=== PATIENT | female | born 1960 | race African-American/Black ===

== ENCOUNTER 2020-03-15 17:21 | Inpatient (IN) ==
[2020-03-15 18:24] LABS: Apearance,Urine CLEAR (Clear); Bacteria,Urine Occasional /HPF (Few); Bilirubin,Urine Negative (Negative); Blood, Urine Negative (Negative); Glucose,Urine (UA) Negative (Negative); Ketones,Urine 5 mg/dL (Negative); Mucus,Urine Occasional /LPF (Occasional); Nitrite,Urine Negative (Negative); Protein,Urine Negative; RBC,Urine 4 /HPF (0-4); Squamous Epithelial Cell,Urine Occasional /HPF (0-10); Urine Color Yellow (Yellow); Urine Specific Gravity 1.017 (1.001-1.035); Urine Urobilinogen < 2.0 EU/DL (0.2-1.0); WBC,Urine 14 /HPF (0-6)
[2020-03-15 18:30] LABS: Basophils # 0.1 10*3/uL (0.0-0.2); Basophils % 0.3 % (0.0-0.8); Eosinophils % 0.2 % (0.00-10.9); Hematocrit 41.8 VOL% (35.7-47.0); Hemoglobin 13.4 GM/DL (12.0-16.0); Immature Granulocytes % 0.6 %; Immature Granulocytes Absolute 0.14 #; Lymphocytes # 3.1 10*3/uL (1.4-4.0); Lymphocytes % 13.1 % (21.3-54.2); Mean Corpuscular HGB Conc 32.1 GM/DL (32-36); Mean Corpuscular Volume 90.5 FL (87-102); Mean Platelet Volume 9.6 FL (9.6-12.0); Monocytes % 5.1 % (1.7-12.7); Neutrophils % 80.7 % (38.7-73.9); Platelet Count 363 T/CUMM (130-400); Red Blood Count 4.62 MC/CUMM (3.8-5.5); White Blood Count 23.8 T/CUMM (4-12)
[2020-03-15 18:45] LABS: Albumin 3.7 G/DL (3.4-5.0); Bilirubin,Total 1.1 MG/DL (0.2-1.0); Calcium 9.2 MG/DL (8.5-10.1); Osmolality,Calculated 273.7 MOS/KG (273-304); Total Protein 7.9 G/DL (6.4-8.3)
[2020-03-15 18:50] LABS: Lymphocytes 10 % (20-55); Macrocytosis 1+; Platelet Estimate Adequate; Polychromasia 1+; Segmented Neutrophils 87 % (50-85); Total Cells Counted 100
[2020-03-15] MEDS ORDERED: CLINDAMYCIN INJ 600 MG in PREMIX 1 EACH IV STA (20:53)
[2020-03-15] MEDS ORDERED: metroNIDAZOLE INJ 500 MG in PREMIX 1 EACH IV STA (20:54)
[2020-03-15] MEDS ORDERED: cefTRIAXone 1,000 MG in SODIUM CHLORIDE 0.9% 100 ML IV SCH (21:00)
[2020-03-15] MEDS ORDERED: CLINDAMYCIN INJ 50 ML IV ONE (21:05)
[2020-03-15] MEDS ORDERED: cefTRIAXone 1,000 MG in SODIUM CHLORIDE 0.9% 100 ML IV STA (21:10)
[2020-03-15] MEDS: SODIUM CHLORIDE 0.9% 1,000 ML IV SCH (21:11)
[2020-03-15] MEDS: ACETAMINOPHEN 325 MG TABLET PO PRN (21:22)
[2020-03-16] MEDS ORDERED: GLUCAGON 1 MG VIAL IM PRN (01:17)
[2020-03-16] MEDS ORDERED: DEXTROSE 50% 25 GM/50 ML VIAL IV PRN (01:17)
[2020-03-16 03:00] LABS: Basophils % 0.2 % (0.0-0.8); Eosinophils # 0.1 10*3/uL (0.0-0.87); Eosinophils % 0.4 % (0.00-10.9); Hematocrit 37.1 VOL% (35.7-47.0); Hemoglobin 11.7 GM/DL (12.0-16.0); Immature Granulocytes % 0.5 %; Immature Granulocytes Absolute 0.09 #; Lymphocytes # 2.8 10*3/uL (1.4-4.0); Lymphocytes % 14.8 % (21.3-54.2); Mean Corpuscular HGB Conc 31.5 GM/DL (32-36); Mean Corpuscular Volume 91.2 FL (87-102); Mean Platelet Volume 9.5 FL (9.6-12.0); Monocytes % 5.2 % (1.7-12.7); Neutrophils % 78.9 % (38.7-73.9); Platelet Count 277 T/CUMM (130-400); Red Blood Count 4.07 MC/CUMM (3.8-5.5); Red Cell Distribution Width 14.1 % (9.3-17.3); White Blood Count 19.2 T/CUMM (4-12)
[2020-03-16 03:22] LABS: Bilirubin,Total 0.9 MG/DL (0.2-1.0); Calcium 8.4 MG/DL (8.5-10.1); Osmolality,Calculated 275.5 MOS/KG (273-304)
[2020-03-16] MEDS: PIPERACILLIN/TAZOBACTAM 3,375 MG in SODIUM CHLORIDE 0.9% 100 ML IV SCH ×3 (06:05→21:47)
[2020-03-16] MEDS: SODIUM CHLORIDE 0.9% 1,000 ML IV SCH (06:05)
[2020-03-16] MEDS: ACETAMINOPHEN 325 MG TABLET PO PRN (08:40)
[2020-03-16] MEDS: ENOXAPARIN 40 MG/0.4 ML SYRINGE SUBCUT SCH (08:40)
[2020-03-16] MEDS: DEXTROSE 5% NACL 0.45% 1,000 ML IV SCH ×3 (08:40→18:32)
[2020-03-16] MEDS: metroNIDAZOLE INJ 500 MG in PREMIX 1 EACH IV SCH ×2 (10:32→18:31)
[2020-03-16] MEDS ORDERED: DEXAMETHASONE 4 MG TABLET PO SCH (14:00)
[2020-03-16] MEDS: PANTOPRAZOLE 40 MG VIAL IV SCH (14:10)
[2020-03-16] MEDS: ASCORBIC ACID 500 MG TABLET PO SCH (21:45)
[2020-03-17] MEDS: metroNIDAZOLE INJ 500 MG in PREMIX 1 EACH IV SCH ×3 (03:12→18:07)
[2020-03-17 05:44] LABS: Basophils % 0.2 % (0.0-0.8); Eosinophils % 0.1 % (0.00-10.9); Hemoglobin 11.9 GM/DL (12.0-16.0); Immature Granulocytes % 0.7 %; Immature Granulocytes Absolute 0.12 #; Lymphocytes # 1.6 10*3/uL (1.4-4.0); Lymphocytes % 9.1 % (21.3-54.2); Mean Corpuscular HGB Conc 32.2 GM/DL (32-36); Mean Platelet Volume 9.8 FL (9.6-12.0); Monocytes % 2.3 % (1.7-12.7); Neutrophils % 87.6 % (38.7-73.9); Platelet Count 294 T/CUMM (130-400); Red Blood Count 4.11 MC/CUMM (3.8-5.5); Red Cell Distribution Width 13.5 % (9.3-17.3); White Blood Count 17.5 T/CUMM (4-12)
[2020-03-17] MEDS: PIPERACILLIN/TAZOBACTAM 3,375 MG in SODIUM CHLORIDE 0.9% 100 ML IV SCH ×3 (05:52→21:23)
[2020-03-17 06:25] LABS: Calcium 8.9 MG/DL (8.5-10.1); Osmolality,Calculated 272.8 MOS/KG (273-304)
[2020-03-17] MEDS: ENOXAPARIN 40 MG/0.4 ML SYRINGE SUBCUT SCH (08:57)
[2020-03-17] MEDS: PANTOPRAZOLE 40 MG VIAL IV SCH (08:58)
[2020-03-17] MEDS: ESCITALOPRAM 10 MG TABLET PO SCH (08:58)
[2020-03-17] MEDS: DEXAMETHASONE 4 MG TABLET PO SCH (08:58)
[2020-03-17] MEDS: ACETAMINOPHEN 325 MG TABLET PO PRN (08:59)
[2020-03-17] MEDS: ASCORBIC ACID 500 MG TABLET PO SCH ×2 (08:59→21:23)
[2020-03-17] MEDS: DEXTROSE 5% NACL 0.45% 1,000 ML IV SCH ×3 (09:00→14:59)
[2020-03-17] MEDS ORDERED: ZINC SULFATE 220 MG CAPSULE PO SCH (09:00)
[2020-03-17] MEDS ORDERED: ONDANSETRON 4 MG/2 ML VIAL IM PRN (11:08)
[2020-03-17] MEDS ORDERED: ONDANSETRON 4 MG/2 ML VIAL IV PRN (11:27)
[2020-03-18] MEDS: metroNIDAZOLE INJ 500 MG in PREMIX 1 EACH IV SCH ×3 (01:23→18:02)
[2020-03-18] MEDS: PIPERACILLIN/TAZOBACTAM 3,375 MG in SODIUM CHLORIDE 0.9% 100 ML IV SCH (05:56)
[2020-03-18] MEDS ORDERED: HYDROmorphone 2 MG/1 ML VIAL IV ONE (07:35)
[2020-03-18] MEDS: PANTOPRAZOLE 40 MG VIAL IV SCH (08:32)
[2020-03-18] MEDS: amLODIPine 5 MG TABLET PO SCH ×2 (08:33→10:09)
[2020-03-18] MEDS: ASCORBIC ACID 500 MG TABLET PO SCH (08:33)
[2020-03-18] MEDS: DEXAMETHASONE 4 MG TABLET PO SCH (08:33)
[2020-03-18] MEDS: ESCITALOPRAM 10 MG TABLET PO SCH (08:34)
[2020-03-18] MEDS: ENOXAPARIN 40 MG/0.4 ML SYRINGE SUBCUT SCH (08:40)
[2020-03-18] MEDS ORDERED: VANCOMYCIN INJ 1,000 MG in SODIUM CHLORIDE 0.9% 250 ML IV SCH (10:00)
[2020-03-18] MEDS: DEXTROSE 5% NACL 0.45% 1,000 ML IV SCH (10:10)
[2020-03-18 10:12] LABS: Basophils % 0.1 % (0.0-0.8); Eosinophils % 0.2 % (0.00-10.9); Hematocrit 35.8 VOL% (35.7-47.0); Hemoglobin 11.5 GM/DL (12.0-16.0); Immature Granulocytes % 0.5 %; Immature Granulocytes Absolute 0.09 #; Lymphocytes # 2.1 10*3/uL (1.4-4.0); Lymphocytes % 11.3 % (21.3-54.2); Mean Corpuscular HGB Conc 32.1 GM/DL (32-36); Mean Corpuscular Volume 90.4 FL (87-102); Mean Platelet Volume 9.8 FL (9.6-12.0); Monocytes % 4.9 % (1.7-12.7); Platelet Count 314 T/CUMM (130-400); Red Blood Count 3.96 MC/CUMM (3.8-5.5); Red Cell Distribution Width 13.6 % (9.3-17.3); White Blood Count 18.1 T/CUMM (4-12)
[2020-03-18] MEDS ORDERED: MEROPENEM 2,000 MG in SODIUM CHLORIDE 0.9% 100 ML IV SCH (10:30)
[2020-03-18] MEDS ORDERED: HYDROmorphone 2 MG/1 ML VIAL IV PRN (10:32)
[2020-03-18 10:35] LABS: Calcium 8.3 MG/DL (8.5-10.1)
[2020-03-18] MEDS: KETOROLAC 30 MG/1 ML VIAL IV SCH ×2 (10:47→21:10)
[2020-03-18] MEDS ORDERED: NALOXONE 0.4 MG/ML VIAL IV PRN (10:51)
[2020-03-18 12:00] LABS: PT Patient Result 11.2 SECS (9.8-11.9)
[2020-03-18] MEDS ORDERED: DIAZEPAM 5 MG TABLET PO ONE (14:44)
[2020-03-18] MEDS ORDERED: MIDAZOLAM 2 MG/2 ML VIAL IV ONE (15:00)
[2020-03-18] MEDS ORDERED: fentaNYL 100 MCG/2 ML VIAL IV ONE (15:00)
[2020-03-18] MEDS ORDERED: fentaNYL 100 MCG/2 ML VIAL ONE (15:13)
[2020-03-18] MEDS ORDERED: MIDAZOLAM 2 MG/2 ML VIAL ONE (15:13)
[2020-03-18] MEDS: HYDROmorphone PCA 30 MG/30 ML SYRINGE IV SCH (17:00)
[2020-03-18] MEDS: MEROPENEM 500 MG in SODIUM CHLORIDE 0.9% 100 ML IV SCH (20:36)
[2020-03-19] MEDS: MEROPENEM 500 MG in SODIUM CHLORIDE 0.9% 100 ML IV SCH ×4 (02:30→20:44)
[2020-03-19] MEDS: KETOROLAC 30 MG/1 ML VIAL IV SCH ×4 (03:00→20:44)
[2020-03-19] MEDS: metroNIDAZOLE INJ 500 MG in PREMIX 1 EACH IV SCH ×3 (03:15→18:08)
[2020-03-19] MEDS: DEXTROSE 5% NACL 0.45% 1,000 ML IV SCH ×3 (04:15→18:13)
[2020-03-19 06:05] LABS: Basophils % 0.1 % (0.0-0.8); Eosinophils % 0.1 % (0.00-10.9); Hematocrit 37.4 VOL% (35.7-47.0); Hemoglobin 11.4 GM/DL (12.0-16.0); Immature Granulocytes % 0.6 %; Lymphocytes # 1.8 10*3/uL (1.4-4.0); Lymphocytes % 10.6 % (21.3-54.2); Mean Corpuscular HGB Conc 30.5 GM/DL (32-36); Mean Corpuscular Volume 94.2 FL (87-102); Mean Platelet Volume 9.9 FL (9.6-12.0); Monocytes % 5.3 % (1.7-12.7); NRBC # 0.02 10*3/uL; Neutrophils % 83.3 % (38.7-73.9); Platelet Count 260 T/CUMM (130-400); Red Blood Count 3.97 MC/CUMM (3.8-5.5); Red Cell Distribution Width 13.7 % (9.3-17.3); White Blood Count 16.6 T/CUMM (4-12)
[2020-03-19 06:32] LABS: Calcium 7.9 MG/DL (8.5-10.1); Osmolality,Calculated 263.4 MOS/KG (273-304)
[2020-03-19] MEDS: ENOXAPARIN 40 MG/0.4 ML SYRINGE SUBCUT SCH (09:24)
[2020-03-19] MEDS: PANTOPRAZOLE 40 MG VIAL IV SCH (09:24)
[2020-03-19] MEDS: ESCITALOPRAM 10 MG TABLET PO SCH (09:24)
[2020-03-19] MEDS: amLODIPine 5 MG TABLET PO SCH (09:25)
[2020-03-19] MEDS: HYDROmorphone PCA 30 MG/30 ML SYRINGE IV SCH (18:05)
[2020-03-20] MEDS: metroNIDAZOLE INJ 500 MG in PREMIX 1 EACH IV SCH ×3 (02:27→18:18)
[2020-03-20] MEDS: KETOROLAC 30 MG/1 ML VIAL IV SCH ×4 (03:15→20:47)
[2020-03-20] MEDS: DEXTROSE 5% NACL 0.45% 1,000 ML IV SCH ×2 (03:15→21:39)
[2020-03-20] MEDS: MEROPENEM 500 MG in SODIUM CHLORIDE 0.9% 100 ML IV SCH ×4 (03:33→20:45)
[2020-03-20] MEDS: ACETAMINOPHEN 325 MG TABLET PO PRN (04:37)
[2020-03-20 07:25] LABS: Basophils % 0.1 % (0.0-0.8); Eosinophils # 0.1 10*3/uL (0.0-0.87); Eosinophils % 0.4 % (0.00-10.9); Hematocrit 36.3 VOL% (35.7-47.0); Hemoglobin 11.6 GM/DL (12.0-16.0); Immature Granulocytes % 0.7 %; Immature Granulocytes Absolute 0.12 #; Lymphocytes # 1.1 10*3/uL (1.4-4.0); Mean Corpuscular Volume 90.1 FL (87-102); Mean Platelet Volume 9.3 FL (9.6-12.0); Neutrophils % 87.8 % (38.7-73.9); Platelet Count 262 T/CUMM (130-400); Red Blood Count 4.03 MC/CUMM (3.8-5.5); Red Cell Distribution Width 13.6 % (9.3-17.3); White Blood Count 16.1 T/CUMM (4-12)
[2020-03-20 07:42] LABS: Calcium 7.7 MG/DL (8.5-10.1)
[2020-03-20] MEDS: ESCITALOPRAM 10 MG TABLET PO SCH (09:10)
[2020-03-20] MEDS: PANTOPRAZOLE 40 MG VIAL IV SCH (09:10)
[2020-03-20] MEDS: amLODIPine 5 MG TABLET PO SCH (09:11)
[2020-03-20] MEDS: ENOXAPARIN 40 MG/0.4 ML SYRINGE SUBCUT SCH (09:11)
[2020-03-20] MEDS: HYDROmorphone PCA 30 MG/30 ML SYRINGE IV SCH (18:18)
[2020-03-21] MEDS: MEROPENEM 500 MG in SODIUM CHLORIDE 0.9% 100 ML IV SCH ×2 (03:36→10:05)
[2020-03-21] MEDS: KETOROLAC 30 MG/1 ML VIAL IV SCH ×2 (03:43→10:03)
[2020-03-21] MEDS: metroNIDAZOLE INJ 500 MG in PREMIX 1 EACH IV SCH ×2 (04:44→14:07)
[2020-03-21 06:45] LABS: Basophils % 0.1 % (0.0-0.8); Eosinophils # 0.1 10*3/uL (0.0-0.87); Eosinophils % 0.8 % (0.00-10.9); Hematocrit 34.3 VOL% (35.7-47.0); Immature Granulocytes % 0.8 %; Immature Granulocytes Absolute 0.13 #; Lymphocytes # 1.4 10*3/uL (1.4-4.0); Lymphocytes % 8.9 % (21.3-54.2); Mean Corpuscular HGB Conc 32.1 GM/DL (32-36); Mean Corpuscular Volume 89.6 FL (87-102); Mean Platelet Volume 9.9 FL (9.6-12.0); Monocytes % 5.4 % (1.7-12.7); Platelet Count 259 T/CUMM (130-400); Red Blood Count 3.83 MC/CUMM (3.8-5.5); Red Cell Distribution Width 13.6 % (9.3-17.3); White Blood Count 15.8 T/CUMM (4-12)
[2020-03-21 07:01] LABS: Calcium 7.6 MG/DL (8.5-10.1); Osmolality,Calculated 274.5 MOS/KG (273-304)
[2020-03-21] MEDS ORDERED: FLUCONAZOLE INJ 800 MG in PREMIX 1 EACH IV ONE (09:00)
[2020-03-21] MEDS: amLODIPine 5 MG TABLET PO SCH (10:03)
[2020-03-21] MEDS: ESCITALOPRAM 10 MG TABLET PO SCH (10:03)
[2020-03-21] MEDS: PANTOPRAZOLE 40 MG VIAL IV SCH (10:04)
[2020-03-21] MEDS: ENOXAPARIN 40 MG/0.4 ML SYRINGE SUBCUT SCH (10:05)
[2020-03-21 12:53] VITALS: BP 117/48
[2020-03-21] MEDS: HYDROmorphone PCA 30 MG/30 ML SYRINGE IV SCH (14:24)
[2020-03-22] MEDS ORDERED: FLUCONAZOLE INJ 400 MG in PREMIX 1 EACH IV SCH (09:00)
== END 2020-03-21 14:30 | disposition home health service (06) | DRG 393 ==
LOC: N.ED 17:21 → N.EDINP 03-16 02:26 → N.2E 03-16 05:20 → N.5E 03-17 13:40
PROVIDERS: ADMIT Surgery; ATTEND Surgery

== ENCOUNTER 2020-04-29 06:31 | Inpatient (IN) ==
[2020-04-25 12:53] LABS: Basophils % 0.4 % (0.0-0.8); Eosinophils # 0.1 10*3/uL (0.0-0.87); Eosinophils % 0.8 % (0.00-10.9); Hematocrit 40.6 VOL% (35.7-47.0); Hemoglobin 12.9 GM/DL (12.0-16.0); Immature Granulocytes % 0.4 %; Immature Granulocytes Absolute 0.04 #; Lymphocytes # 3.2 10*3/uL (1.4-4.0); Lymphocytes % 31.5 % (21.3-54.2); Mean Corpuscular HGB Conc 31.8 GM/DL (32-36); Mean Corpuscular Volume 89.4 FL (87-102); Mean Platelet Volume 9.9 FL (9.6-12.0); Monocytes % 6.1 % (1.7-12.7); Neutrophils % 60.8 % (38.7-73.9); Platelet Count 324 T/CUMM (130-400); Red Blood Count 4.54 MC/CUMM (3.8-5.5); Red Cell Distribution Width 14.5 % (9.3-17.3)
[2020-04-25 13:22] LABS: Calcium 9.2 MG/DL (8.5-10.1); Osmolality,Calculated 274.5 MOS/KG (273-304)
[~2020-04-29 06:31] MED LIST: ALVIMOPAN 12 MG CAPSULE PO ONE; ERTAPENEM 1,000 MG in SODIUM CHLORIDE 0.9% 100 ML IV ONE; GENTAMICIN INJ 160 MG in SODIUM CHLORIDE 0.9% 100 ML IV ONE
[2020-04-29] MEDS ORDERED: FAMOTIDINE 20 MG TABLET ONE (07:43)
[2020-04-29] MEDS ORDERED: FAMOTIDINE 20 MG TABLET PO STA (08:08)
[2020-04-29] MEDS ORDERED: LACTATED RINGERS 1,000 ML IV SCH (08:30)
[2020-04-29] MEDS ORDERED: ROPIVACAINE 0.5% 30 ML VIAL ONE (12:29)
[2020-04-29] MEDS ORDERED: INDOCYANINE GREEN 25 MG VIAL IV ONE (12:39)
[2020-04-29] MEDS ORDERED: ALBUMIN 5% 12.5 GM/250 ML VIAL IV ONE (13:22)
[2020-04-29] MEDS ORDERED: TISSUE ADHESIVE 1 EACH APPLICATOR TOP ONE (16:11)
[2020-04-29] MEDS ORDERED: SEVOFLURANE 1 UNIT/15 MINUTE INH ONE (17:11)
[2020-04-29] MEDS ORDERED: LIDOCAINE 2% 5 ML VIAL ONE (17:11)
[2020-04-29] MEDS ORDERED: ROCURONIUM 100 MG/10 ML VIAL IV ONE (17:11)
[2020-04-29] MEDS ORDERED: propofoL 200 MG/20 ML VIAL IV ONE (17:11)
[2020-04-29] MEDS ORDERED: DESFLURANE 1 UNIT/15 MINUTE INH ONE (17:11)
[2020-04-29] MEDS ORDERED: MIDAZOLAM 2 MG/2 ML VIAL ONE (17:11)
[2020-04-29] MEDS ORDERED: LACTATED RINGERS 1,000 ML IV ONE (17:11)
[2020-04-29] MEDS ORDERED: ACETAMINOPHEN 1,000 MG/100 ML VIAL IV ONE (17:11)
[2020-04-29] MEDS ORDERED: fentaNYL 100 MCG/2 ML VIAL ONE (17:11)
[2020-04-29] MEDS ORDERED: ONDANSETRON 4 MG/2 ML VIAL IV PRN ×2 (17:28→18:18)
[2020-04-29] MEDS ORDERED: ONDANSETRON 4 MG/2 ML VIAL ONE (17:30)
[2020-04-29] MEDS ORDERED: HYDROmorphone 2 MG/1 ML VIAL ONE (17:30)
[2020-04-29] MEDS: HYDROmorphone 2 MG/1 ML VIAL IV PRN ×3 (17:33→21:46)
[2020-04-29] MEDS: KETOROLAC 30 MG/1 ML VIAL IV SCH (18:40)
[2020-04-29] MEDS: LACTATED RINGERS 1,000 ML IV SCH (18:41)
[2020-04-29 19:00] LABS: Basophils % 0.1 % (0.0-0.8); Hematocrit 38.6 VOL% (35.7-47.0); Hemoglobin 12.3 GM/DL (12.0-16.0); Immature Granulocytes % 0.5 %; Lymphocytes # 1.5 10*3/uL (1.4-4.0); Lymphocytes % 7.2 % (21.3-54.2); Mean Corpuscular HGB Conc 31.9 GM/DL (32-36); Mean Corpuscular Volume 91.3 FL (87-102); Mean Platelet Volume 9.5 FL (9.6-12.0); Monocytes % 4.3 % (1.7-12.7); Neutrophils % 87.9 % (38.7-73.9); Platelet Count 305 T/CUMM (130-400); Red Blood Count 4.23 MC/CUMM (3.8-5.5); Red Cell Distribution Width 14.7 % (9.3-17.3); White Blood Count 20.5 T/CUMM (4-12)
[2020-04-29 19:21] LABS: Calcium 8.9 MG/DL (8.5-10.1); Osmolality,Calculated 274.8 MOS/KG (273-304)
[2020-04-29] MEDS: ALVIMOPAN 12 MG CAPSULE PO SCH (20:41)
[2020-04-29 22:43] LABS: Band Neutrophils 8 % (0-10); Hypochromasia 2+; Lymphocytes 7 % (20-55); Platelet Estimate Normal; Segmented Neutrophils 79 % (50-85); Total Cells Counted 100
[2020-04-30] MEDS: KETOROLAC 30 MG/1 ML VIAL IV SCH ×3 (00:23→12:39)
[2020-04-30] MEDS: LACTATED RINGERS 1,000 ML IV SCH ×2 (03:10→12:58)
[2020-04-30 05:56] LABS: Basophils % 0.2 % (0.0-0.8); Eosinophils # 0.1 10*3/uL (0.0-0.87); Eosinophils % 0.7 % (0.00-10.9); Hemoglobin 11.3 GM/DL (12.0-16.0); Immature Granulocytes % 0.4 %; Immature Granulocytes Absolute 0.05 #; Lymphocytes % 17.8 % (21.3-54.2); Mean Corpuscular HGB Conc 32.3 GM/DL (32-36); Mean Corpuscular Volume 88.4 FL (87-102); Mean Platelet Volume 9.7 FL (9.6-12.0); Monocytes % 7.8 % (1.7-12.7); Neutrophils % 73.1 % (38.7-73.9); Platelet Count 284 T/CUMM (130-400); Red Blood Count 3.96 MC/CUMM (3.8-5.5); Red Cell Distribution Width 14.6 % (9.3-17.3); White Blood Count 11.4 T/CUMM (4-12)
[2020-04-30 06:55] LABS: Calcium 8.7 MG/DL (8.5-10.1); Osmolality,Calculated 271.8 MOS/KG (273-304)
[2020-04-30] MEDS: ALVIMOPAN 12 MG CAPSULE PO SCH (08:29)
[2020-04-30] MEDS: HYDROmorphone 2 MG/1 ML VIAL IV PRN (08:43)
[2020-04-30] MEDS ORDERED: DOCUSATE SODIUM 100 MG CAPSULE PO SCH (09:00)
[2020-04-30] MEDS ORDERED: MULTIVITAMIN (CENTRUM) TABLET PO SCH (09:00)
[2020-04-30] MEDS ORDERED: ASCORBIC ACID 500 MG TABLET PO SCH (09:00)
[2020-04-30] MEDS ORDERED: ASPIRIN EC 81 MG TABLET PO SCH (09:00)
[2020-04-30] MEDS ORDERED: OMEGA 3 ACID ETHYL ESTERS 1 GM CAPSULE PO SCH (09:00)
[2020-04-30] MEDS ORDERED: POLYCARBOPHIL 625 MG TABLET PO SCH (09:00)
[2020-04-30] MEDS ORDERED: amLODIPine 5 MG TABLET PO SCH (09:00)
[2020-04-30 11:36] VITALS: BP 115/64
[2020-04-30] MEDS ORDERED: ENOXAPARIN 40 MG/0.4 ML SYRINGE SUBCUT SCH (12:00)
[2020-05-01] MEDS ORDERED: LOSARTAN 25 MG TABLET PO SCH (09:00)
== END 2020-04-30 13:41 | disposition home or self-care (01) | DRG 331 ==
LOC: N.SDSINP 06:31 → N.OR 06:31 → N.SDSINP 06:32 → N.4E 18:00 → N.SDSINP 18:00
PROVIDERS: ADMIT Surgery; ATTEND Surgery